=== PATIENT | female | born 1955 | race Caucasian/White ===

== ENCOUNTER 2025-05-29 12:55 | Emergency (ER) | payer OTHER ==
[~2025-05-29] VITALS: Ht 154.9 cm; Wt 52.2 kg
[2025-05-29 13:13] VITALS: BP 161/92; TEMP 98
[2025-05-29] MEDS ORDERED: POLY10DR OP (13:32)
[2025-05-29 13:42] VITALS: O2SAT 97
== END 2025-05-29 13:42 | disposition home or self-care (01) ==
LOC: ER 13:12
DX: H11.31 Conjunctival hemorrhage, right eye (principal); G40.909 Epilepsy, unspecified, not intractable, without status epilepticus